=== PATIENT | male | born 1985 | race Caucasian/White ===

== ENCOUNTER → 2017-02-07 | Outpatient (CLI) | payer MEDICAID ==
--- NOTE | 2017-02-08 10:42 | EEG PRO FEE REPORT ---
EEG INTERPRETATION PATIENT NAME: GERTRUDIS WADE ROOM#: ORDER#: [id number] DATE OF STUDY: 02/07/2017 : 1985 REFERRING MD: ANNABELLA INMAN M.D. DIAGNOSIS: Epilepsy REPORT The background activity consists of slightly disorganized theta of around 7 Hz. Patient is laying down quietly and hyperventilation induces some fairly marked build up but it returns to within normals after one and half minutes. It appears the patient is somewhat drowsy during portions of the tracing but at other times there is some mildly excessive motion artifact. No further focal slowing or amplitude asymmetry is noted. No seizures are identified on the video portion of the tracing. IMPRESSION Slightly slow EEG for age implying effect the patient is probably drowsy so I would say normal drowsy EEG for age. INTERPRETING PHYSICIAN: ERIC JOHNS M.D. /: MTEFYUVAL TT: 1032 ID: [id number] /: [id number] TD: [id number] JOB: [id number] cc:Fabiana LUCIO M.D. >
== END ==
LOC: NEURO 08:20
PROVIDERS: ATTEND Pediatrics
DX: G40.209 Localization-related (focal) (partial) symptomatic epilepsy and epileptic syndromes with complex partial seizures, not intractable, without status epilepticus (principal); F89 Unspecified disorder of psychological development; Z91.19 Patient's noncompliance with other medical treatment and regimen
CPT/HCPCS: 95819

== ENCOUNTER 2017-11-01 18:12 | Emergency (ER) | payer MEDICAID ==
[2017-11-01 18:19] VITALS: BP 123/57
--- NOTE | 2017-11-01 19:32 | RADIOLOGY REPORT (SQ) ---
EXAM DESCRIPTION: SHOULDER RIGHT 2 OR MORE VIEWS COMPLETED DATE/TIME: 11/01/2017 7:10 pm REASON FOR STUDY: fall COMPARISON: None. NUMBER OF VIEWS: Three views. TECHNIQUE: Internal rotation, external rotation, and Y view images acquired of the right shoulder. LIMITATIONS: None. FINDINGS: MINERALIZATION: Normal. BONES: No acute fracture or dislocation. No worrisome bone lesions. JOINTS: No dislocation. VISUALIZED LUNGS AND RIBS: No pneumothorax. No rib fracture. SOFT TISSUES: No radiopaque foreign body. OTHER: No other significant finding. IMPRESSION: NEGATIVE STUDY OF THE RIGHT SHOULDER. NO RADIOGRAPHIC EVIDENCE OF ACUTE INJURY. TECHNICAL DOCUMENTATION: JOB ID: [id number] [employer]- All Rights Reserved Reading location - IP/workstation name: [email or web address]
[2017-11-01] MEDS ORDERED: LIDOCAINE 5% (700 MG) TRANSDERMAL ADH..PATCH TP ONE (19:41)
--- NOTE | 2017-11-01 20:00 | ER Document Report ---
ED General - General Chief Complaint: Shoulder Pain Stated Complaint: SHOULDER INJURY Time Seen by Provider: 11/01/17 18:55 TRAVEL OUTSIDE OF THE [place] IN LAST 30 DAYS: No - HPI Patient complains to provider of: Right shoulder pain Notes: Patient coming in for right shoulder pain. Patient states has a history of seizures had 2 seizures one time falling on his right shoulder has been aching ever since that time. Patient is concerning for possible fracture therefore came to the ER for an x-ray. Patient denies any fevers chills nausea vomiting diarrhea states that he is compliant with his Dilantin. Patient declines further workup other than x-ray stating that he does not want his blood work checked and does not want his Dilantin level checked. 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 Renal/ Medical History: Denies: Hx Peritoneal Dialysis Psychiatric Medical History: Reports: Hx Attention Deficit Hyperactivity Disorder, Hx Bipolar Disorder, Hx Depression, Hx Schizophrenia Past Surgical History: Reports: Hx Adenoidectomy, Hx Tonsillectomy - Immunizations Hx Diphtheria, Pertussis, Tetanus Vaccination: No Review of Systems - Review of Systems Constitutional: No symptoms reported EENT: No symptoms reported Cardiovascular: No symptoms reported Respiratory: No symptoms reported Gastrointestinal: No symptoms reported Genitourinary: No symptoms reported Male Genitourinary: No symptoms reported Musculoskeletal: Other - Shoulder pain Skin: No symptoms reported Hematologic/Lymphatic: No symptoms reported Neurological/Psychological: No symptoms reported Physical Exam - Vital signs Vitals: Temp Pulse Resp BP Pulse Ox 97.8 F 63 18 123/57 L 100 11/01/17 18:18 11/01/17 18:18 11/01/17 18:18 11/01/17 18:18 11/01/17 18:18 Interpretation: Normal - General General appearance: Appears well, Alert - HEENT Head: Normocephalic, Atraumatic Eyes: Normal Pupils: PERRL - Respiratory Respiratory status: No respiratory distress Chest status: Nontender Breath sounds: Normal Chest palpation: Normal - Cardiovascular Rhythm: Regular Heart sounds: Normal auscultation Murmur: No - Abdominal Inspection: Normal Distension: No distension Bowel sounds: Normal Tenderness: Nontender Organomegaly: No organomegaly - Back Back: Normal, Nontender - Extremities General upper extremity: Normal color, Normal ROM - Decreased range of motion of the right shoulder due to pain. Patient has tenderness to palpation at the AC joint however is no obvious separation. No other tenderness to palpation of the clavicle scapula or humeral head left shoulder unaffected, Normal temperature. No: Normal inspection General lower extremity: Normal inspection, Nontender, Normal color, Normal ROM , Normal temperature, Normal weight bearing. No: Frank's sign - Neurological Neuro grossly intact: Yes Cognition: Normal Orientation: AAOx4 Azam Coma Scale Eye Opening: Spontaneous Nash Coma Scale Verbal: Oriented Azam Coma Scale Motor: Obeys Commands Nash Coma Scale Total: 15 Speech: Normal Motor strength normal: LUE, RUE, LLE, RLE Sensory: Normal - Psychological Associated symptoms: Normal affect, Normal mood - Skin Skin Temperature: Warm Skin Moisture: Dry Skin Color: Normal Course - Re-evaluation Re-evalutation: 11/01/17 21:24 X-rays negative for any acute pathology. At the time of discharge patient still declines any further workup. Patient will be discharged home Tylenol Motrin for pain control along with lidocaine patch. - Vital Signs Vital signs: Temp Pulse Resp BP Pulse Ox 97.8 F 63 18 123/57 L 100 11/01/17 18:18 11/01/17 18:18 11/01/17 18:18 11/01/17 18:18 11/01/17 18:18 Discharge - Discharge Clinical Impression: Shoulder pain Qualifiers: Chronicity: acute Laterality: right Qualified Code(s): M25.511 - Pain in right shoulder Condition: Good Disposition: HOME, SELF-CARE Instructions: Shoulder Injury ([facility]) Additional Instructions: X-ray does not show any signs of fracture or separation. You have deep contusion to that area of the shoulder. Would recommend taking Tylenol Motrin for pain control he may also use the lidocaine patch that we gave you here in ER for the next 12 hours lidocaine patches are available [id number] return to ER symptoms worsen. Referrals: ANNABELLA INMAN MD [Primary Care Provider] - Follow up as needed
== END 2017-11-01 20:00 | disposition home or self-care (01) ==
LOC: ER 18:12
DX: M25.511 Pain in right shoulder (principal); R56.9 Unspecified convulsions; Z79.899 Other long term (current) drug therapy; Z88.2 Allergy status to sulfonamides
CPT/HCPCS: 99283; 73030; J3490

== ENCOUNTER 2018-03-16 08:56 | Emergency (ER) | payer MEDICAID ==
[2018-03-16 09:15] VITALS: BP 107/61
--- NOTE | 2018-03-16 09:48 | ER Document Report ---
ED Medical Screen (RME) - General Chief Complaint: Seizure Stated Complaint: POSSIBLE SEIZURE Time Seen by Provider: 03/16/18 09:42 Mode of Arrival: Ambulatory Information source: Patient, Relative Notes: This is a 32-year-old man with a seizure disorder since age 7 (Keppra 1000 mg twice daily) who is accompanied by his sister and girlfriend. Patient apparently had a seizure after getting up suddenly at 1130 last night. Patient got up for work this morning at approximately 515 and had another generalized tonic-clonic clonic seizure. Patient does complain of a mild headache after the seizure which is typical for him. He denies any recent fevers, chills, nausea, vomiting. He denies any recent illnesses. He denies any significant alcohol intake and does not use drugs. He does state that he has had less sleep and is working a lot lately (this is confirmed by his family members). They state that he has been under a lot of stress and he is been working and volunteering as well. TRAVEL OUTSIDE OF THE [place] IN LAST 30 DAYS: No - HPI Onset: Just prior to arrival Onset/Duration: Sudden Quality of pain: Dull Severity: Mild Pain Level: 1 Associated Symptoms: denies: Chest pain, Diarrhea, Fever, Nausea, Shortness of breath, Vomiting Exacerbated by: Denies Relieved by: Denies Similar symptoms previously: Yes Recently seen / treated by doctor: No - Related Data Smoking: Non-smoker Frequency of alcohol use: Occasional Drug Abuse: None Allergies/Adverse Reactions: Sulfa (Sulfonamide Antibiotics) Allergy (Unknown, Verified 03/16/18 08:57) Past Medical History - General Information source: Patient - Social History Cigarette use (# per day): No Chew tobacco use (# tins/day): No Frequency of alcohol use: Occasional Drug Abuse: None Lives with: Family Family history: None - Past Medical History Cardiac Medical History: Reports: None Pulmonary Medical History: Reports: None Neurological Medical History: Reports: 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 Denies: Hx Peritoneal Dialysis Malignancy Medical History: Reports None GI Medical History: Reports: None Musculoskeltal Medical History: Reports None Psychiatric Medical History: Reports: Hx Attention Deficit Hyperactivity Disorder, Hx Bipolar Disorder, Hx Depression, Hx Schizophrenia Past Surgical History: Reports: Hx Adenoidectomy, Hx Tonsillectomy - Immunizations Hx Diphtheria, Pertussis, Tetanus Vaccination: No Review of Systems - Review of Systems Constitutional: denies: Chills, Fever EENT: denies: Nose congestion, Nose discharge, Sinus pressure, Sinus discharge Cardiovascular: denies: Chest pain, Palpitations, Heart racing Respiratory: denies: Cough, Short of breath, Wheezing Gastrointestinal: denies: Abdominal pain, Nausea, Vomiting Genitourinary: denies: Burning, Dysuria, Discharge Male Genitourinary: No symptoms reported Musculoskeletal: Muscle pain Skin: Other - Abrasions to the nose and the right corner of the mouth. denies: Rash Hematologic/Lymphatic: No symptoms reported Neurological/Psychological: Seizure, Headaches - Patient states it is normal for him to have a dull headache after seizure. He states that this is no different than how he normally is after seizure. Physical Exam - Vital signs Vitals: Temp Pulse Resp BP Pulse Ox 97.6 F 60 16 107/61 100 03/16/18 09:13 03/16/18 09:13 03/16/18 09:13 03/16/18 09:13 03/16/18 09:13 Notes: Physical exam: GENERAL: Patient is alert and oriented x3, no acute distress. HEAD: Normocephalic. Patient has very superficial abrasion on the right side of the nose. There is no septal deviation or hematomas. EYES: Pupils equal round and reactive to light, extraocular movements intact, sclera anicteric, conjunctiva are normal. ENT: TMs normal, nares patent, oropharynx clear without exudates. No tongue biting. He has a mild abrasion to the right side of the mouth. Moist mucous membranes. NECK: Normal range of motion, supple without obvious mass LUNGS: Breath sounds clear to auscultation bilaterally and equal. No wheezes rales or rhonchi. HEART: Regular rate and rhythm without murmurs, rubs or gallops. ABDOMEN: Soft, normoactive bowel sounds. No tenderness to palpation. No guar ding, no rebound. No masses appreciated. EXTREMITIES: Normal range of motion, no pitting or edema. No clubbing or cyanosis. NEUROLOGICAL: Cranial nerves II through XII grossly intact. Normal speech, moving all extremities. Motor is 5/5. Cerebellar (finger to nose) is good. Romberg is negative. Gait is normal. Sensory is grossly intact. PSYCH: Normal mood, normal affect. SKIN: Warm, Dry, normal turgor, no rashes or lesions noted. Course - Re-evaluation Re-evalutation: 03/16/18 09:45 I had a long conversation with the patient, his sister and girlfriend. We have gotten the dose of his medicines from his mother on the phone. He has been compliant with his medicines. He is followed by Dr. Appiah (neurologist). He has had no recent illnesses and has had no nausea and vomiting. He has had lack of sleep because he is been working a lot and he drinks a lot of Mountain Dew to stay out. We talked about the triggers for seizures. And the plan will for him to try and get some rest I am going to give him a work statement. I recommended he follow-up with Dr. Appiah. I recommend he continue with his dose. P atient's Accu-Chek is 82. - Vital Signs Vital signs: Temp Pulse Resp BP Pulse Ox 97.6 F 60 16 107/61 100 03/16/18 09:13 03/16/18 09:13 03/16/18 09:13 03/16/18 09:13 03/16/18 09:13 Doctor's Discharge - Discharge Clinical Impression: Seizure Condition: Stable Disposition: HOME, SELF-CARE Additional Instructions: As we discussed, there are multiple triggers for seizure when someone has a seizure disorder. Lack of sleep and increased stress from work is a big trigger for seizures. It is important for you to get good sleep. I want you to take it easy for the rest of the day and get a good night's rest before work tomorrow. I want you to avoid all alcohol. I would like you to follow-up with Dr. Appiah: Call the office today and schedule surgical appointment for next week. In the meantime, return to the emergency room for worsening headache, fever or chills or any further seizures or any concerns that she getting worse. Forms: Return to Work Referrals: ANNABELLA INMAN MD [Primary Care Provider] - Follow up in 1 week (I would like you to call the office today and schedule an appointment for next week.)
== END 2018-03-16 09:49 | disposition home or self-care (01) ==
LOC: ER 08:56
DX: G40.909 Epilepsy, unspecified, not intractable, without status epilepticus (principal); Z79.899 Other long term (current) drug therapy; S00.31XA Abrasion of nose, initial encounter; S00.512A Abrasion of oral cavity, initial encounter; W19.XXXA Unspecified fall, initial encounter; R51 Headache; M79.10 Myalgia, unspecified site; Z72.820 Sleep deprivation; Z88.2 Allergy status to sulfonamides
CPT/HCPCS: 82962; 99283

== ENCOUNTER 2018-03-22 08:58 | Emergency (ER) | payer MEDICAID ==
[2018-03-22 09:19] VITALS: BP 121/52
--- NOTE | 2018-03-22 09:33 | ER Document Report ---
HPI - HPI Time Seen by Provider: 03/22/18 09:18 Pain Level: 3 Notes: Patient is a 33-year-old male who presents with chief complaint of vomiting, sore throat and productive cough. Patient denies any fevers. States he has vomited 4 times since yesterday. He denies any abdominal pain or diarrhea. 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 HEAD: Atraumatic, normocephalic. EYES: Pupils equal round extraocular movements intact, conjunctiva are normal. ENT: Nares patent NECK: Normal range of motion LUNGS: No respiratory distress Abdomen: Abdomen soft, nontender, no guarding no rebound. Musculoskeletal: Normal range of motion NEUROLOGICAL: Normal speech, normal gait. PSYCH: Normal mood, normal affect. SKIN: Warm, Dry, normal turgor, no rashes or lesions noted. - INFECTION CONTROL TRAVEL OUTSIDE OF THE [place] IN LAST 30 DAYS: No Course - Re-evaluation Re-evalutation: Patient's physical examination is unremarkable. Patient does not have any abdominal pain. Likely viral illness. Patient appears well and vitals are stable. Will discharge patient home with Zofran ODT prescription and ED return precautions. - Vital Signs Vital signs: Temp Pulse Resp BP Pulse Ox 97.5 F 96 16 121/52 L 97 03/22/18 09:13 03/22/18 09:13 03/22/18 09:13 03/22/18 09:13 03/22/18 09:13 Discharge - Discharge Clinical Impression: Vomiting Qualifiers: Vomiting type: unspecified Vomiting Intractability: unspecified Nausea presen ce: with nausea Qualified Code(s): R11.2 - Nausea with vomiting, unspecified Condition: Stable Disposition: HOME, SELF-CARE Additional Instructions: He has been seen in the emergency department for vomiting and upper respiratory symptoms. Please take the Zofran as directed. Return to the emergency department if you develop abdominal pain with fever, persistent vomiting or any other symptom that is concerning to you. Prescriptions: Ondansetron [Zofran Odt 4 mg Tablet] 1 - 2 tab PO Q4H PRN #15 tab.rapdis PRN Reason: For Nausea/Vomiting Referrals: ANNABELLA INMAN MD [COMMUNITY BASED STAFF] - Follow up as needed
== END 2018-03-22 09:41 | disposition home or self-care (01) ==
LOC: ER 08:58
DX: R11.2 Nausea with vomiting, unspecified (principal); J02.9 Acute pharyngitis, unspecified; R05 Cough
CPT/HCPCS: 99282

== ENCOUNTER → 2020-01-21 | Outpatient (CLI) | payer MEDICAID ==
--- NOTE | 2020-01-21 18:37 | NEURO WORKBENCH EEG REPORT ---
EEG Report Patient: Rene Sauer ID: [id number] Referring Doctor: Gaurav Bell MD DOS: 01/21/2020 Medications: Levetiracetam History This is a 34 year old right handed male with a history of complex partial seizures diagnosed age 7 and asthma; his last seizure was in October 2019. This EEG was requested for seizures. EEG Interpretation This EEG was recorded in the minimal awake with mostly drowsy and sleep states. The awake EEG is only briefly noted and is characterized by a fairly well- organized background with a well-developed and reactive but only briefly noted posterior dominant rhythm of up to 9 Hz. The remainder of the background was characterized by a combination of alpha with some beta frequencies. There was prominent theta throughout much of the recording most consistent with the drowsy state. Drowsiness was characterized by slowing of the background rhythms. Vertex waves and sleep spindles were seen in the midline head regions. Photic stimulation resulted in no significant changes. Hyperventilation resulted in generalized slowing of the background. There were no epileptiform abnormalities. The EKG showed a regular rhythm in the 40s-50s. EEG Classification * Normal * EKG - bradycardia EEG Impression This EEG is within normal limits for age however it was recorded mostly in the drowsy state. There were no epileptiform abnormalities noted. Of note, the EKG showed a bradycardia. INTERPRETING NEUROLOGIST: Cristel Ramsey MD, CPC Board Certified in Neurology, with special qualification in Child Neurology, and in Clinical Neurophysiology [facility]
== END ==
LOC: NEURO 07:51
PROVIDERS: ATTEND Pediatrics
DX: G40.209 Localization-related (focal) (partial) symptomatic epilepsy and epileptic syndromes with complex partial seizures, not intractable, without status epilepticus (principal); F89 Unspecified disorder of psychological development
CPT/HCPCS: 95819

== ENCOUNTER → 2020-02-03 | Outpatient (CLI) | payer MEDICAID ==
--- NOTE | 2020-02-03 16:37 | EKG REPORT ---
SEVERITY:- NORMAL ECG - SINUS RHYTHM ST ELEV, PROBABLE NORMAL EARLY REPOL PATTERN : Confirmed by: Agatha Shay 03-Feb-2020 16:36:33
== END ==
LOC: OD 12:30
PROVIDERS: ATTEND Pediatrics
DX: G40.209 Localization-related (focal) (partial) symptomatic epilepsy and epileptic syndromes with complex partial seizures, not intractable, without status epilepticus (principal); F89 Unspecified disorder of psychological development; R94.31 Abnormal electrocardiogram [ECG] [EKG]
CPT/HCPCS: 93005; 93010